=== PATIENT | female | born 1975 | race Caucasian/White ===

== ENCOUNTER 2016-08-27 19:36 | Emergency (ER) | payer OTHER ==
[~2016-08-27] VITALS: Ht 157.5 cm; Wt 76.2 kg
[2016-08-27] MEDS ORDERED: ULTRAM50 MG PO (22:19)
[2016-08-27] MEDS ORDERED: FLEXERIL10 MG PO (22:19)
[2016-08-27] MEDS ORDERED: PREDNISONE10 MG PO (22:19)
[2016-08-27 22:28] VITALS: BP 122/94
== END 2016-08-27 22:29 | disposition home or self-care (01) ==
LOC: EME 19:36 → EXP 19:36
DX: M54.40 Lumbago with sciatica, unspecified side (principal); S30.0XXA Contusion of lower back and pelvis, initial encounter; W00.1XXA Fall from stairs and steps due to ice and snow, initial encounter; F17.200 Nicotine dependence, unspecified, uncomplicated
CPT/HCPCS: 72170; 99281; 99284; J7512

== ENCOUNTER 2016-09-15 17:26 | Emergency (ER) | payer OTHER ==
[~2016-09-15] VITALS: Ht 157.5 cm; Wt 74.0 kg
[~2016-09-15 17:26] MED LIST: FLEXERIL10 MG PO; PREDNISONE10 MG PO; ULTRAM50 MG PO
[2016-09-15] MEDS ORDERED: NAPROXEN500 MG PO (19:09)
[2016-09-15] MEDS ORDERED: ARIPIPRAZOLE5 MG PO (19:09)
[2016-09-15 19:30] LABS: ADD MIUA? YES; BILIRUBIN NEGATIVE; BLOOD LARGE; COLOR YELLOW ((YELLOW)); GLUCOSE (STRIP) NEGATIVE; KETONES NEGATIVE; LEUKOCYTES LARGE; NITRITE NEGATIVE; PH, URINE 6.5 (5-8); PROTEIN (STRIP) 30; SPECIFIC GRAVITY 1.008 (1.000-1.030); UROBILINOGEN 0.2 MG/DL (0.2-1.0)
[2016-09-15 19:42] LABS: HEMATOCRIT 43.9 % (36.0-46.0); MCH 28.9 PG (29.0-34.0); MCHC 32.6 G/DL (30.0-36.0); MCV 88.7 FL (83-99); MEAN PLAT.VOLUME 10.6 uM^3 (9.5-12.4); PLATELET COUNT 204 K/uL (156-360); RBC DIS.WIDTH-CV 12.4 % (11.8-14.6); RBC DIS.WIDTH-SD 39.7 % (39-53); RED BLOOD COUNT 4.95 M/uL (3.80-5.20)
[2016-09-15 19:50] LABS: CHLORIDE 106 mEq/L (99-109); POTASSIUM 3.6 mEq/L (3.7-5.4); SODIUM 140 mEq/L (136-147)
[2016-09-15 19:53] LABS: URBC NUMBER 54.5; UWBC NUMBER 1730.9; WHITE BLOOD CELLS TNTC /HPF (0-5)
[2016-09-15 19:53] LABS: GLUCOSE 88 mg/dL (70-99)
[2016-09-15 19:54] LABS: BACTERIA NONE SEEN; CASTS NONE SEEN /LPF; CRYSTALS NONE SEEN; EPITHELIAL CELLS 1+; MUCUS NONE SEEN; UCUL ADDED? YES; UEPI NUMBER 29.8
[2016-09-15 19:54] LABS: ANION GAP 9 MEQ/L (2-14)
[2016-09-15 19:55] LABS: TOTAL BILIRUBIN 0.5 mg/dL (0.0-1.0)
[2016-09-15 19:56] LABS: ALKALINE PHOSPHATASE 92 IU/L (3-129); GFR ESTIMATE (CALCULATED) > 59 mL/min/; WHITE BLOOD COUNT 13.4 K/uL (4.1-10.2)
[2016-09-15 19:57] LABS: UREA NITROGEN (BUN) 7 mg/dL (9-23)
[2016-09-15 20:00] LABS: LIPASE 28 U/L (1.0-51.0)
[2016-09-15] MEDS ORDERED: KEFLEX500 MG PO (20:02)
[2016-09-15 20:04] LABS: PROTHROMBIN TIME 9.9 (9.2-11.2); PTT 30.5 (25-32)
[2016-09-15] MEDS ORDERED: CIPRO500 MG PO (20:08)
[2016-09-15] MEDS ORDERED: NAPROSYN500 MG PO (20:40)
[2016-09-15 20:41] VITALS: BP 146/84
== END 2016-09-15 20:43 | disposition home or self-care (01) ==
LOC: EME 17:26 → RME 17:26
PROVIDERS: Nurse Practitioner Family
DX: N39.0 Urinary tract infection, site not specified (principal); F17.200 Nicotine dependence, unspecified, uncomplicated; Z91.040 Latex allergy status; Z88.6 Allergy status to analgesic agent
CPT/HCPCS: 80053; 81003; 83690; 85027; 85610; 85730; 87086; 99281; 99284

== ENCOUNTER 2017-07-25 00:42 | Emergency (ER) | payer OTHER ==
[~2017-07-25] VITALS: Ht 157.5 cm; Wt 76.2 kg
[~2017-07-25 00:42] MED LIST changes: +ARIPIPRAZOLE5 MG PO; +CIPRO500 MG PO; +KEFLEX500 MG PO; +NAPROSYN500 MG PO; +NAPROXEN500 MG PO
[2017-07-25 00:44] VITALS: BP 156/113
[2017-07-25] MEDS ORDERED: ZOFRAN ODT4 MG PO (01:54)
== END 2017-07-25 02:23 | disposition home or self-care (01) ==
LOC: EME 00:42
DX: L72.3 Sebaceous cyst (principal); R11.0 Nausea; F17.200 Nicotine dependence, unspecified, uncomplicated; Z91.040 Latex allergy status; Z88.6 Allergy status to analgesic agent
CPT/HCPCS: 99281; 99284

== ENCOUNTER 2017-07-27 10:56 | Emergency (ER) | payer OTHER ==
[~2017-07-27] VITALS: Ht 157.5 cm; Wt 75.7 kg
[~2017-07-27 10:56] MED LIST changes: +ZOFRAN ODT4 MG PO
[2017-07-27 11:07] VITALS: BP 176/82
[2017-07-27] MEDS ORDERED: BACTRIM,SEPT1 TABLET PO (13:50)
[2017-07-27] MEDS ORDERED: FLAGYL500 MG PO (13:50)
[2017-07-27] MEDS ORDERED: DIFLUCAN150 MG PO (13:50)
== END 2017-07-27 14:37 | disposition home or self-care (01) ==
LOC: EME 10:56
PROC: 0H90XZX Drainage of Scalp Skin, External Approach, Diagnostic (ICD-10-PCS; principal; 2017-07-27)
DX: L72.3 Sebaceous cyst (principal); L08.89 Other specified local infections of the skin and subcutaneous tissue; B95.62 Methicillin resistant Staphylococcus aureus infection as the cause of diseases classified elsewhere; I10 Essential (primary) hypertension; E66.9 Obesity, unspecified; Z88.6 Allergy status to analgesic agent; Z91.040 Latex allergy status
CPT/HCPCS: 87070; 87075; 87077; 87147; 87186; 87205; 99281; 99284

== ENCOUNTER 2017-07-30 13:34 | Emergency (ER) | payer OTHER ==
[~2017-07-30] VITALS: Ht 157.5 cm; Wt 75.8 kg
[~2017-07-30 13:34] MED LIST changes: +BACTRIM,SEPT1 TABLET PO; +DIFLUCAN150 MG PO; +FLAGYL500 MG PO
[2017-07-30 14:01] LABS: MCH 29.2 PG (29.0-34.0); MCHC 33.9 G/DL (30.0-36.0); MCV 86.1 FL (83-99); MEAN PLAT.VOLUME 10.8 uM^3 (9.5-12.4); PLATELET COUNT 217 K/uL (156-360); RED BLOOD COUNT 5.69 M/uL (3.80-5.20); WHITE BLOOD COUNT 9.7 K/uL (4.1-10.2)
[2017-07-30 14:13] LABS: CHLORIDE 103 mEq/L (99-109); POTASSIUM 3.2 mEq/L (3.7-5.4); SODIUM 137 mEq/L (136-147)
[2017-07-30 14:14] LABS: GLUCOSE 96 mg/dL (70-99)
[2017-07-30 14:16] LABS: ANION GAP 9 MEQ/L (2-14)
[2017-07-30 14:18] LABS: GFR ESTIMATE (CALCULATED) > 59 mL/min/
[2017-07-30 14:19] LABS: UREA NITROGEN (BUN) 6 mg/dL (9-23)
[2017-07-30 14:26] LABS: QUANTITATIVE HCG < 4.0 MIU/ML
[2017-07-30 15:56] LABS: ADD MIUA? YES; BILIRUBIN NEGATIVE; BLOOD SMALL; COLOR YELLOW ((YELLOW)); GLUCOSE (STRIP) NEGATIVE; KETONES NEGATIVE; LEUKOCYTES MODERATE; NITRITE NEGATIVE; PROTEIN (STRIP) NEGATIVE; SPECIFIC GRAVITY 1.003 (1.000-1.030); UROBILINOGEN 0.2 MG/DL (0.2-1.0)
[2017-07-30 16:16] LABS: BACTERIA 1+ /HPF; CASTS NONE SEEN /LPF; CRYSTALS NONE SEEN; EPITHELIAL CELLS 2+ /HPF; MUCUS NONE SEEN /LPF; RED BLOOD CELLS 0-5 /HPF (0-5); UCUL ADDED? YES
[2017-07-30] MEDS ORDERED: MAALOX MAXIMUM355 ML PO (17:25)
[2017-07-30] MEDS ORDERED: REGLAN10 MG PO (17:25)
[2017-07-30] MEDS ORDERED: CARAFATE1 GM PO (17:25)
[2017-07-30] MEDS ORDERED: PRILOSEC OTC20 MG PO (17:25)
[2017-07-30 17:55] VITALS: BP 131/62
== END 2017-07-30 18:00 | disposition home or self-care (01) ==
LOC: EME 13:34
DX: R11.2 Nausea with vomiting, unspecified (principal); R19.7 Diarrhea, unspecified; F17.200 Nicotine dependence, unspecified, uncomplicated
CPT/HCPCS: 70450; 74177; 80048; 81003; 84702; 85027; 87086; 99281; 99285; J2405; J2765; J7030; S0028

== ENCOUNTER → 2017-09-04 | Outpatient (CLI) | payer OTHER ==
[~2017-09-04] VITALS: Ht 157.5 cm; Wt 73.0 kg
[~2017-09-04] MED LIST changes: +CARAFATE1 GM PO; +FENTANYL1 EAC5 TD; +MAALOX MAXIMUM355 ML PO; +METOCLOPRAMIDE10 MG PO; +OXYCODONE HCL10 MG PO; +PRILOSEC OTC20 MG PO; +PROBIOTIC1 EAC2 PO; +REGLAN10 MG PO
== END | disposition home or self-care (01) ==
LOC: AMB 06:33
PROC: 0DB68ZX Excision of Stomach, Via Natural or Artificial Opening Endoscopic, Diagnostic (ICD-10-PCS; principal; 2017-09-04)
DX: K29.70 Gastritis, unspecified, without bleeding (principal); K21.9 Gastro-esophageal reflux disease without esophagitis; I10 Essential (primary) hypertension; F41.1 Generalized anxiety disorder; J45.20 Mild intermittent asthma, uncomplicated; Z88.0 Allergy status to penicillin; F17.200 Nicotine dependence, unspecified, uncomplicated; Z83.71 Family history of colonic polyps
CPT/HCPCS: 84132; 88305; 88342 TC; J1100; J2405; J3010

== ENCOUNTER → 2017-09-11 | Outpatient (CLI) | payer OTHER | END | disposition home or self-care (01) | LOC: NUC 06:58 | DX: R11.2 Nausea with vomiting, unspecified (principal) | CPT/HCPCS: 78264; A9541 ==